=== PATIENT | male | born 1955 | race Caucasian/White ===

== ENCOUNTER → 2016-10-18 | Outpatient (CLI) | payer BC ==
[2016-10-18 16:33] LABS: HEMATOCRIT 38.2 % (42-52); MEAN CORPUSCULAR HEMOGLOBIN 29.5 pg (25-34); MEAN CORPUSCULAR HGB CONC 34.3 g/dl (32-36); MEAN PLATELET VOLUME 9.4 fL (7.4-10.4); PLATELET COUNT 366 K/uL (130-400); RED BLOOD COUNT 4.44 M/uL (4.7-6.1); WHITE BLOOD COUNT 8.53 K/uL (4.8-10.8)
[2016-10-18 17:00] LABS: ALT/SGPT 34 U/L (12-78); AST/SGOT 16 U/L (15-37); BLOOD UREA NITROGEN 13 mg/dl (7-18); BUN/CREATININE RATIO 16.3 (10-20); CALCIUM 8.4 mg/dl (8.5-10.1); CARBON DIOXIDE 28 mmol/L (21-32); CHLORIDE 107 mmol/L (98-107); CHOLESTEROL 131 mg/dl (0-200); CREATININE 0.81 mg/dl (0.60-1.40); GLUCOSE 95 mg/dl (70-99); POTASSIUM 3.6 mmol/L (3.5-5.1); SODIUM 143 mmol/L (136-145)
[2016-10-18 17:09] LABS: ALB/GLOB RATIO 1.2 (0.9-2); ALKALINE PHOSPHATASE 72 U/L (45-117); CHOLESTEROL/HDL RATIO 3.1; HDL CHOLESTEROL 42 mg/dl; LDL CHOLESTEROL CALCULATED 73 mg/dl; THYROID STIMULATING HORMONE 0.615 uIu/ml (0.300-4.500); TRIGLYCERIDES 82 mg/dl (0-150); VERY LOW DENSITY LIPOPROT CALC 16 mg/dl
[2016-10-18 17:27] LABS: RATIO 854.1 mcg/mg (0-30.0)
[2016-10-19 06:06] LABS: ESTIMATED AVERAGE GLUCOSE 232 mg/dl; HA1C FLAG Normal (Normal)
== END ==
LOC: C.LAB1850 14:48
PROVIDERS: ATTEND Internal Medicine Endocrinology, Diabetes & Metabolism
DX: E11.39 Type 2 diabetes mellitus with other diabetic ophthalmic complication (principal); E11.65 Type 2 diabetes mellitus with hyperglycemia; E78.5 Hyperlipidemia, unspecified; Z79.4 Long term (current) use of insulin; E11.43 Type 2 diabetes mellitus with diabetic autonomic (poly)neuropathy

== ENCOUNTER → 2017-01-02 | Outpatient (CLI) | payer BC ==
[~2017-01-02] VITALS: Ht 177.8 cm; Wt 106.5 kg
[2017-01-02 09:17] VITALS: BP 153/85; PULSE 80; Ht 177.8 cm; Wt 106.5 kg
== END | disposition home or self-care (01) ==
LOC: C.NEUR 08:43
PROVIDERS: ATTEND Internal Medicine Pulmonary Disease
DX: G47.33 Obstructive sleep apnea (adult) (pediatric) (principal); I25.10 Atherosclerotic heart disease of native coronary artery without angina pectoris; E11.49 Type 2 diabetes mellitus with other diabetic neurological complication; E11.65 Type 2 diabetes mellitus with hyperglycemia; E78.5 Hyperlipidemia, unspecified; I10 Essential (primary) hypertension; H91.90 Unspecified hearing loss, unspecified ear; K76.0 Fatty (change of) liver, not elsewhere classified; E66.9 Obesity, unspecified

== ENCOUNTER → 2018-01-28 | Outpatient (CLI) | payer BC | END | disposition home or self-care (01) | LOC: C.LAB1850 12:27 | PROVIDERS: ATTEND Internal Medicine Endocrinology, Diabetes & Metabolism | DX: E11.43 Type 2 diabetes mellitus with diabetic autonomic (poly)neuropathy (principal); Z79.4 Long term (current) use of insulin; R53.83 Other fatigue ==

== ENCOUNTER 2023-11-01 00:41 | Inpatient (IN) ==
[2023-11-01 01:27] LABS: Mean Corpuscular Hemoglobin 29.2 pg (25.0-34.0); Mean Corpuscular Hgb Conc 34.1 g/dL (32.0-36.0); Mean Corpuscular Volume 85.6 fL (80.0-100.0); Mean Platelet Volume 10.1 fL (9.4-12.4); Platelet Count 278 K/uL (130-400); RDW Coefficient of Variation 12.5 % (11.5-14.5); RDW Standard Deviation 39.3 fL (36.4-46.3); Red Blood Count 5.14 M/uL (4.70-6.10); White Blood Count 5.39 K/ul (4.8-10.8)
--- NOTE | 2023-11-01 01:28 | Emergency Department Note ---
History of Present Illness General Chief complaint: Hyperglycemia Stated complaint: CONFUSION,SLEEPY,DIABETIC Time Seen by Provider: 11/01/23 01:03 History of Present Illness This 68-year-old male with type 2 diabetes that is noncompliant presents the ER for fever, increased confusion and vomiting and diarrhea for the past day. states he stopped taking his diabetic medication as he did not currently have insurance. states she is not sure how long has been out of his diabetic medications. states he was not confused yesterday but today he has been. No well water. No recent travel. Patient and complaint of nausea, vomiting, diarrhea with fever and chills. Patient denies chest pain, dyspnea, cough, congestion, abdominal pain. Patient appears lethargic but is able to follow commands and answering questions appropriately. Home Medications Medication Instructions Recorded Confirmed Type aspirin 81 mg tablet,delayed 81 mg PO QAM 02/02/19 06/06/23 History release cetirizine 10 mg tablet 10 mg PO DAILY PRN ALLERGY RELIEF 02/02/19 06/06/23 History coenzyme Q10 100 mg capsule 100 mg PO QAM 02/02/19 06/06/23 History insulin syringe-needle U-100 0.5 #50 ea 08/21/19 06/06/23 Rx mL 31 gauge x 5/16" (BD Insulin Syringe Ultra-Fine) cholecalciferol (vitamin D3) 25 25 mcg PO DAILY 05/23/20 06/06/23 History mcg (1,000 unit) capsule multivitamin 1 tab PO DAILY 05/23/20 06/06/23 History FreeStyle Miki 2 Brady (flash #1 ea 01/13/21 06/06/23 Rx glucose scanning reader) celecoxib 200 mg capsule (Celebrex) 200 mg PO BID 01/13/21 06/06/23 History sildenafil 100 mg tablet See Rx Instructions .Route 07/20/21 06/06/23 Rx .COMPLEX #5 tabs blood sugar diagnostic #300 ea 11/16/21 06/06/23 Rx blood sugar diagnostic (OneTouch #300 ea 11/16/21 06/06/23 Rx Ultra Test strips) Omnipod Dash Pods (Gen 4) (insulin #10 ea 11/30/21 03/21/23 Rx pump cart,cont inf,BT) clopidogrel 75 mg tablet 75 mg PO DAILY #90 tabs 10/29/22 06/06/23 Rx V-GO 40 (sub-q insulin device, 40 #30 ea 11/07/22 06/06/23 Rx unit) insulin lispro 100 unit/mL 20 unit (0.2 mL) subcut DAILY #30 01/02/23 06/06/23 Rx subcutaneous pen (Humalog KwikPen mL (U-100) Insulin) clindamycin HCl 150 mg capsule 150 mg PO TID 03/21/23 06/06/23 History amlodipine 10 mg tablet 10 mg PO DAILY #30 tabs 04/02/23 06/06/23 Rx dulaglutide 3 mg/0.5 mL 3 mg (0.5 mL) subcut Q7D diabetes 04/15/23 06/06/23 Rx subcutaneous pen injector #2 mL metformin 1,000 mg tablet 1,000 mg PO BID 90 days #180 tabs 04/23/23 06/06/23 Rx metoprolol succinate 25 mg See Rx Instructions .Route 04/25/23 06/06/23 Rx tablet,extended release 24 hr .COMPLEX #45 tabs Humalog U-100 Insulin 100 unit/mL See Rx Instructions subcut DAILY 04/26/23 06/06/23 Rx subcutaneous solution (insulin #70 mL lispro) blood-glucose sensor (FreeStyle #2 ea 08/02/23 Rx Miki 3 Sensor device) atorvastatin 80 mg tablet 80 mg PO DAILY #90 tabs 08/21/23 Rx telmisartan 80 mg tablet 80 mg PO DAILY #90 tabs 08/21/23 Rx pregabalin 150 mg capsule 150 mg PO TID #270 caps 09/25/23 Rx Allergies Allergy/AdvReac Type Severity Reaction Status Date / Time ampicillin Allergy Intermediate Hives Verified 05/27/23 09:03 Past Med/Surg History Medical History Osteoarthritis GERD (gastroesophageal reflux disease) Macular degeneration RECEIVING EYE INJECTIONS Peripheral neuropathy Hx of migraines Rupture of right patellar tendon History of alcohol abuse History of gastric ulcer Vitamin D deficiency Obstructive sleep apnea of adult NO DEVICE Hypertension Hearing difficulty Erectile dysfunction Elevated PSA Dyslipidemia Diabetes mellitus with neurological manifestations, uncontrolled Diabetes mellitus with diabetic autonomic neuropathy, with long-term current use of insulin Coronary artery disease Chronic pain syndrome BMI 33.0-33.9,adult Surgical History History of colonoscopy History of tooth extraction History of tonsillectomy History of cataract surgery RT History of heart artery stent (~2009) History of lung surgery S/P PNEUMONIA (DRAINED EMPYEMA) Family History Sister Alcohol abuse Cancer Unknown Cancer Diabetes Cardiac disorder Hypertension Mother Diabetes Hypertension Father Cardiac disorder valvular disease COPD (chronic obstructive pulmonary disease) Lung cancer Brother Tremor Denies family history of Ovarian cancer Prostate cancer Myocardial infarction Breast cancer Colorectal cancer Social History Smoking Status: Never smoker Second Hand Exposure: No; Do You Dip or Chew Tobacco: No; Hx Alcohol Use: Yes Alcohol type: hard liquor Hx Substance Use: No Preferred Language: [place]dean Communication Ability: Effective Visual Impairment: No Limitations Hearing Ability: Normal Mail List Librarian Required: No Beliefs That Will Affect Care: None marital status: Current Living Situation: Spouse current occupational status: employed Feels Safe at Home: Yes Diet: regular Diet Comment: regular caffeine: Yes during the past year weight has: remained stable Dental Care, Regularly: Yes Physical Activity Frequency: Does not Exercise Seatbelt Use: always Sunscreen Use: Yes Assistive Devices: Brace/Splint/Immobilizer and Glasses Review of Systems A total of 10 systems reviewed and were otherwise negative Physical Exam Vital Signs Vital Signs - 24 hr 11/01/23 00:47 11/01/23 01:02 11/01/23 01:30 Temperature 38.0 C H Temperature Source Temporal Artery Scan Pulse Rate 141 H 137 H Pulse Rate [Apical] 133 H Pulse Rhythm Regular Pulse Strength Normal Respiratory Rate 18 20 Respiratory Effort / Characteristics Non-Labored Spontaneous Respiratory Depth Normal Respiratory Pattern Regular Blood Pressure 154/85 H Blood Pressure [Right Arm] 127/85 Blood Pressure Mean 108 Blood Pressure Mean [Right Arm] 99 Blood Pressure Position Sitting Pulse Oximetry 99 91 Oxygen Delivery Method Room Air Room Air Sepsis Recent Fever Within 48 Hours Yes Sepsis New/Unexplained Change in Mental Status Yes Sepsis Action Taken by Nursing No Action Required 11/01/23 01:30 11/01/23 02:39 Temperature 37.7 C H Temperature Source Oral Pulse Rate Pulse Rate [Apical] Pulse Rhythm Pulse Strength Respiratory Rate Respiratory Effort / Characteristics Respiratory Depth Respiratory Pattern Blood Pressure Blood Pressure [Right Arm] Blood Pressure Mean Blood Pressure Mean [Right Arm] Blood Pressure Position Pulse Oximetry 91 Oxygen Delivery Method Room Air Sepsis Recent Fever Within 48 Hours Sepsis New/Unexplained Change in Mental Status Sepsis Action Taken by Nursing VITALS: Vitals are noted on the nurse's note and reviewed by myself. Vital signs febrile GENERAL: White male with concerns for DKA, in no acute distress, nondiaphoretic, well-developed well-nourished. SKIN: Capillary reflex less than 2 seconds. HEENT: Normocephalic. PERRLA. EOMI. Nares patent. Mucous membranes dry. Neck is supple without nuchal rigidity. HEART: Regular rate and rhythm LUNGS: Clear to auscultation bilaterally without wheezes, rales or rhonchi. No retractions or accessory muscle use. ABDOMEN: Positive bowel sounds x 4. Normal tympanic percussion. Soft, nontender, without masses or organomegaly. Brown sign negative. No guarding or rebound tenderness. no CVA tenderness MUSCULOSKELETAL: No gross musculoskeletal defects. NEURO: Patient was alert and oriented to person place and time. No focal neurological deficits. Course Administered Medications Insulin Human Regular 250 (units/ Sodium Chloride) 250 mls @ 6.4 mls/hr IV .Q24H [facility]; Protocol Stop: 12/01/23 02:14 Last Titration: 11/01/23 04:16 Dose: 6.4 units/hr, 6.4 mls/hr Documented By: CHRISTIANE Co-signed By: DINA Admin: 11/01/23 03:01 Dose: 8.1 units/hr, 8.1 mls/hr Documented By: Co-signed By: AJCKY Discontinued Medications Sodium Chloride (Nss) 1,000 mls @ 999 mls/hr IV .Q1H1M [facility] Stop: 11/01/23 03:15 Last Infusion: 11/01/23 02:44 Dose: Infused Documented By: Admin: 11/01/23 01:54 Dose: 999 mls/hr Documented By: Infusion: 11/01/23 01:54 Dose: Infused Documented By: Admin: 11/01/23 01:48 Dose: 999 mls/hr Documented By: JACKY Cefepime HCl (Maxipime) 2,000 mg in 20 mls @ 5 mls/min IV NOW STA; Protocol Stop: 11/01/23 02:10 Last Admin: 11/01/23 02:19 Dose: 5 mls/min Documented By: JACKY Magnesium Sulfate/Dextrose (Magnesium Sulfate / D5w) 1 gm in 100 mls @ 100 mls/hr IV Q1H DANO Stop: 11/01/23 04:10 Last Admin: 11/01/23 03:44 Dose: 100 mls/hr Documented By: Infusion: 11/01/23 03:20 Dose: Infused Documented By: Admin: 11/01/23 02:20 Dose: 100 mls/hr Documented By: JACKY Acetaminophen (Ofirmev) 1,000 mg in 100 mls @ 400 mls/hr IV NOW STA Stop: 11/01/23 02:52 Last Infusion: 11/01/23 03:45 Dose: Infused Documented By: Admin: 11/01/23 03:01 Dose: 400 mls/hr Documented By: CHRISTIANE Insulin Human Regular (Novolin-R Bolus From Bag) 8.1 units IV 0245 ONE Stop: 11/01/23 02:46 Last Admin: 11/01/23 03:02 Dose: 8.1 units Documented By: Co-signed By: JACKY Ioversol (Optiray 320 125ml) 117 ml IV ONCE ONE Stop: 11/01/23 02:46 Last Admin: 11/01/23 02:45 Dose: 117 ml Documented By: ROLLY Miscellaneous (Stat Iv Infusion Titration Per Protocol) 1 each N/A NOW STA Stop: 11/01/23 02:11 Last Admin: 11/01/23 03:13 Dose: 1 each Documented By: CHRISTIANE Medical Decision Making Medical Records Attestation: I reviewed the patient's medical records. Home Medications Current Medication List: was personally reviewed by me Laboratory Data Attestation: I reviewed the patient's lab results. 11/01/23 01:09 11/01/23 03:08 Lab Results 11/01/23 11/01/23 11/01/23 Range/Units 00:54 01:09 01:37 WBC 5.39 (4.8-10.8) K/ul RBC 5.14 (4.70-6.10) M/uL Hgb 15.0 (14.0-18.0) g/dl Hct 44.0 (42.0-52.0) % MCV 85.6 (80.0-100.0) fL MCH 29.2 (25.0-34.0) pg MCHC 34.1 (32.0-36.0) g/dL RDW Std Deviation 39.3 (36.4-46.3) fL RDW Coeff of Sonu 12.5 (11.5-14.5) % Plt Count 278 (130-400) K/uL MPV 10.1 (9.4-12.4) fL Immature Gran % (Auto) 0.4 % Neut % (Auto) 90.9 % Lymph % (Auto) 2.0 % Geary % (Auto) 5.4 % Eos % (Auto) 0.9 % Baso % (Auto) 0.4 % Neut # (Auto) 4.90 (1.40-6.50) K/uL Lymph # (Auto) 0.11 L (1.20-3.40) K/uL Geary # (Auto) 0.29 (0.11-0.59) K/uL Eos # (Auto) 0.05 (0.00-0.50) K/uL Baso # (Auto) 0.02 (0.00-0.20) K/uL Immature Gran # (Auto) 0.02 (0.01-0.20) K/uL PT 11.6 (9.0-12.0) Seconds INR 1.1 (0.9-1.1) APTT 28 (21-31) Seconds PTT Ratio 1.0 VBG pH (7.36-7.41) Sodium 129 L (136-145) mmol/L Potassium 4.4 (3.5-5.1) mmol/L Chloride 100 (98-107) mmol/L Carbon Dioxide 17 L (21-32) mmol/L Anion Gap 12 H (3-11) BUN 28 H (6-23) mg/dl Creatinine 1.00 (0.6-1.4) mg/dl Est Cr Clr Drug Dosing 74.0 ml/min Est GFR ( Amer) 89.9 ml/min Est GFR (Non-Af Amer) 77.5 ml/min BUN/Creatinine Ratio 28.0 H (10-20) Glucose 524 H* (70-99(Fasting)) mg/dl POC Glucose 458 H* (70-99) mg/dl Lactate (0.4-2.0) mmol/L Calcium 9.0 (8.6-10.3) mg/dl Phosphorus (2.5-4.9) mg/dl Magnesium 1.5 L (1.7-2.4) mg/dl Total Bilirubin 0.6 (0.2-1.0) mg/dl Direct Bilirubin 0.1 (0-0.2) mg/dl AST 14 (13-39) U/L ALT 18 (7-52) U/L Alkaline Phosphatase 79 (34-104) U/L Troponin I High Sens 25.8 H (0-20) pg/ml Total Protein 7.0 (6.0-8.3) gm/dl Albumin 4.3 (3.4-5.0) gm/dl Procalcitonin 2.98 H (0-0.5) ng/ml Urine Color Yellow Urine Appearance Clear (Clear) Urine pH 5.0 (4.5-7.5) Ur Specific Union 1.036 H (1.000-1.030) Urine Protein Trace H (Negative) Urine Glucose (UA) 3+ H (Negative) Urine Ketones 2+ H (Negative) Urine Blood Negative (Negative) Urine Nitrite Negative (Negative) Urine Bilirubin Negative (Negative) Urine Urobilinogen Negative (Negative) Ur Leukocyte Esterase Negative (Negative) Urine WBC (Auto) 0-5 (0-5) /hpf Urine RBC (Auto) 0-2 (0-2) /hpf U Hyaline Cast (Auto) 0-2 (0-2) /lpf U Epithel Cells (Auto) 0-2 (0-2) /hpf Urine Bacteria (Auto) None Seen (None Seen) Adenovirus (PCR) (NotDetected) B. pertussis DNA (PCR) (NotDetected) B.parapertussis DNA PCR (NotDetected) C. pneumoniae DNA (PCR) (NotDetected) Coronavirus OC43 (PCR) (NotDetected) Coronavirus HKU1 (PCR) (NotDetected) Coronavirus 229E (PCR) (NotDetected) SARS-CoV-2 (PCR) (NotDetected) Coronavirus NL63 (PCR) (NotDetected) Human Metapneumovir PCR (NotDetected) Influenza Type A (PCR) (NotDetected) Influenza Type B (PCR) (NotDetected) M. pneumoniae (PCR) (NotDetected) Parainfluenza 1 (PCR) (NotDetected) Parainfluenza 2 (PCR) (NotDetected) Parainfluenza 3 (PCR) (NotDetected) Parainfluenza 4 (PCR) (NotDetected) RSV (PCR) (NotDetected) Entero/Rhino (PCR) (NotDetected) 11/01/23 11/01/23 11/01/23 Range/Units 01:52 03:08 04:07 WBC (4.8-10.8) K/ul RBC (4.70-6.10) M/uL Hgb (14.0-18.0) g/dl Hct (42.0-52.0) % MCV (80.0-100.0) fL MCH (25.0-34.0) pg MCHC (32.0-36.0) g/dL RDW Std Deviation (36.4-46.3) fL RDW Coeff of Sonu (11.5-14.5) % Plt Count (130-400) K/uL MPV (9.4-12.4) fL Immature Gran % (Auto) % Neut % (Auto) % Lymph % (Auto) % Geary % (Auto) % Eos % (Auto) % Baso % (Auto) % Neut # (Auto) (1.40-6.50) K/uL Lymph # (Auto) (1.20-3.40) K/uL Geary # (Auto) (0.11-0.59) K/uL Eos # (Auto) (0.00-0.50) K/uL Baso # (Auto) (0.00-0.20) K/uL Immature Gran # (Auto) (0.01-0.20) K/uL PT (9.0-12.0) Seconds INR (0.9-1.1) APTT (21-31) Seconds PTT Ratio VBG pH 7.32 L (7.36-7.41) Sodium 130 L (136-145) mmol/L Potassium 4.7 (3.5-5.1) mmol/L Chloride 104 (98-107) mmol/L Carbon Dioxide 17 L (21-32) mmol/L Anion Gap 9 (3-11) BUN 27 H (6-23) mg/dl Creatinine 1.08 (0.6-1.4) mg/dl Est Cr Clr Drug Dosing 68.5 ml/min Est GFR ( Amer) 81.9 ml/min Est GFR (Non-Af Amer) 70.6 ml/min BUN/Creatinine Ratio 25.0 H (10-20) Glucose 447 H* (70-99(Fasting)) mg/dl POC Glucose 343 H* (70-99) mg/dl Lactate 1.7 (0.4-2.0) mmol/L Calcium 7.4 L (8.6-10.3) mg/dl Phosphorus 2.0 L (2.5-4.9) mg/dl Magnesium 1.6 L (1.7-2.4) mg/dl Total Bilirubin (0.2-1.0) mg/dl Direct Bilirubin (0-0.2) mg/dl AST (13-39) U/L ALT (7-52) U/L Alkaline Phosphatase (34-104) U/L Troponin I High Sens 30.6 H (0-20) pg/ml Total Protein (6.0-8.3) gm/dl Albumin (3.4-5.0) gm/dl Procalcitonin (0-0.5) ng/ml Urine Color Urine Appearance (Clear) Urine pH (4.5-7.5) Ur Specific Union (1.000-1.030) Urine Protein (Negative) Urine Glucose (UA) (Negative) Urine Ketones (Negative) Urine Blood (Negative) Urine Nitrite (Negative) Urine Bilirubin (Negative) Urine Urobilinogen (Negative) Ur Leukocyte Esterase (Negative) Urine WBC (Auto) (0-5) /hpf Urine RBC (Auto) (0-2) /hpf U Hyaline Cast (Auto) (0-2) /lpf U Epithel Cells (Auto) (0-2) /hpf Urine Bacteria (Auto) (None Seen) Adenovirus (PCR) Not Detected (NotDetected) B. pertussis DNA (PCR) Not Detected (NotDetected) B.parapertussis DNA PCR Not Detected (NotDetected) C. pneumoniae DNA (PCR) Not Detected (NotDetected) Coronavirus OC43 (PCR) Not Detected (NotDetected) Coronavirus HKU1 (PCR) Not Detected (NotDetected) Coronavirus 229E (PCR) Not Detected (NotDetected) SARS-CoV-2 (PCR) Not Detected (NotDetected) Coronavirus NL63 (PCR) Not Detected (NotDetected) Human Metapneumovir PCR Not Detected (NotDetected) Influenza Type A (PCR) Not Detected (NotDetected) Influenza Type B (PCR) Not Detected (NotDetected) M. pneumoniae (PCR) Not Detected (NotDetected) Parainfluenza 1 (PCR) Not Detected (NotDetected) Parainfluenza 2 (PCR) Not Detected (NotDetected) Parainfluenza 3 (PCR) Not Detected (NotDetected) Parainfluenza 4 (PCR) Not Detected (NotDetected) RSV (PCR) Not Detected (NotDetected) Entero/Rhino (PCR) Not Detected (NotDetected) Imaging Data Attestation: I personally reviewed and interpreted this imaging study as follows: Radiologist's Impression: Abdomen/Pelvis CT 11/01/23 02:10 Exam(s): CT ABDOMEN + PELVIS With Contrast IV Amt: 118 cc opti 320 EXAM: CT Abdomen and Pelvis With Intravenous Contrast CLINICAL HISTORY: sepsis. TECHNIQUE: Axial computed tomography images of the abdomen and pelvis with intravenous contrast. CTDI is 67 mGy and DLP is 2445 mGy-cm. Automated exposure control was utilized for the study. A dose lowering technique was utilized adhering to the principles of ALARA. CONTRAST: Patient received 118 cc opti 320 of IV contrast COMPARISON: No relevant prior studies available. FINDINGS: Lung bases: Unremarkable. No mass. No consolidation. ABDOMEN: Liver: Hepatic steatosis. Gallbladder and bile ducts: Unremarkable. No calcified stones. No ductal dilation. Pancreas: Unremarkable. No mass. No ductal dilation. Spleen: Unremarkable. No splenomegaly. Adrenals: Unremarkable. No mass. Kidneys and ureters: Unremarkable. No solid mass. No hydronephrosis. Stomach and bowel: The stomach is mildly distended with fluid and gas. No gastric mucosal thickening. Fluid distention of the small bowel throughout the abdomen and pelvis without dilation. Mild mucosal prominence of the jejunal loops is presumed normal variation. Mild stool burden in the colon. No diverticulitis. PELVIS: Appendix: A somewhat atrophic appearing appendix is noted medial to the cecum in the right lower quadrant. Bladder: Unremarkable. No mass. Reproductive: Unremarkable as visualized. ABDOMEN and PELVIS: Intraperitoneal space: Unremarkable. No free air. No significant fluid collection. Bones/joints: Grade 1 anterolisthesis of L5 on S1 secondary to bilateral L5 spondylolysis. No acute osseous traumatic injury. Chronic anterior wedging noted at T11 and T12 levels with slight accentuated kyphosis. Multilevel disc narrowing with vacuum phenomenon. No dislocation. Soft tissues: Unremarkable. Vasculature: Unremarkable. No abdominal aortic aneurysm. Lymph nodes: Unremarkable. No enlarged lymph nodes. IMPRESSION: 1. Fluid distention of the small bowel throughout the abdomen and pelvis without dilation. Mild mucosal prominence of the jejunal loops is presumed normal variation. Mild stool burden in the colon. No diverticulitis. No free intraperitoneal fluid or pneumoperitoneum. Incidental normal caliber appendix. 2. No other findings in the abdomen or pelvis to suggest the patient's reported sepsis. Electronically signed by: Jesus Stevens MD 11/01/23 04:07 AM Chest CTA 11/01/23 02:10 Exam(s): CTA CHEST IV Amt: 117 cc opti 320 EXAM: CT Chest With Intravenous Contrast CLINICAL HISTORY: Evaluate for PE. TECHNIQUE: Axial computed tomographic images of the chest with intravenous contrast. CTDI is 67 mGy and DLP is 2445 mGy-cm. Automated exposure control was utilized for the study. A dose lowering technique was utilized adhering to the principles of ALARA. COMPARISON: No relevant prior studies available. FINDINGS: Pulmonary arteries: Accounting for limitations with respiratory artifact and suboptimal enhancement pattern, there is no definite evidence for pulmonary embolism. The majority of the subsegmental pulmonary artery segments are of nondiagnostic quality. Aorta: The thoracic aorta is normal in caliber with mild atherosclerotic calcification. No dissection. Lungs: Diminished lung volumes with subsegmental presumed atelectasis noted in the posterior lower lobes. No focal airspace consolidation. Pleural space: Unremarkable. No significant effusion. No pneumothorax. Heart: The cardiac chambers are borderline prominent. Prominent coronary artery calcification is greater than expected for the patient's age but is of uncertain clinical significance. Trace pericardial effusion. Bones/joints: No acute fracture. No dislocation. Soft tissues: Unremarkable. Lymph nodes: Nonspecific subcentimeter paraesophageal lymph nodes. IMPRESSION: 1. Accounting for limitations with respiratory artifact and suboptimal enhancement pattern, there is no definite evidence for pulmonary embolism. The majority of the subsegmental pulmonary artery segments are of nondiagnostic quality. 2. Diminished lung volumes with subsegmental presumed atelectasis noted in the posterior lower lobes. No focal airspace consolidation. No pleural effusion or pneumothorax. 3. Cardiac chambers are upper normal limits. Prominent coronary artery calcification is greater than expected for the patient's age. Trace pericardial effusion. Electronically signed by: Jesus Stevens MD 11/01/23 03:58 AM MDM Narrative Prior records/ancillary studies reviewed and summarized above. Nursing notes reviewed. Additional history obtained from family The patient's history was concerning for fever, nausea, vomiting, diarrhea, hyperglycemia. Differential diagnosis: Etiologies such as DKA, metabolic, infection, hypo/hyperglycemia, electrolyte abnormalities, cardiac sources, intracerebral event, toxicologic, neurologic, as well as others were entertained. Physical examination: As above. ER treatment provided: IV Lock An order was placed for continuous cardiac monitoring. The monitor shows a rate of 60-1 50 with a sinus rhythm per my interpretation. IV fluids On reassessment the patient felt better. Diagnostics interpretation by me: ECG: Tachycardia EKG: Poor baseline, normal sinus, occasional PVC, no acute ST-T wave changes. Impression sinus tachycardia independently interpreted by myself The labs Independently Interpreted by myself revealed hyperglycemia without DKA, negative urine, negative BioFire Elevated procalcitonin, elevated troponin Imaging studies: Chest x-ray with no acute consolidation, pneumothorax or free air per my independent interpretation CTs as above Consultation: A consultation was placed with the hospitalist. The case was discussed and diagnostics were reviewed. The patient was evaluated in the ER for further treatment. Exam and history seem consistent with hyperglycemia with fever with poorly controlled diabetes. ABG showed normal pH. Patient was hydrated and started on insulin as above. Elevated procalcitonin with no obvious source. Imaging was negative. Patient was unable to give a stool sample. BioFire was negative. Urine is not infected. No pneumonia. Patient is agreeable treatment plan of admission. Medicine was consulted and patient will be admitted. by the evaluation outlined above emergent etiologies such as cardiac sources, intracerebral event, toxologic, neurologic, as well as others were deemed relatively unlikely. The pt informed about the findings as listed above. All questions were answered and pleased with the treatment. The chart was completed utilizing Loopback Speech voice recognition software. Grammatical errors, random word insertions, pronoun errors, and incomplete sentences are an occassional consequence of this system due to software limitations, ambient noise, and hardware issues. Any formal questions or concerns about the content, text, or information contained within the body of this dictation should be directly addressed to the physician account assistant for clarification. Impression & Plan Acute hyperglycemia, Poorly controlled diabetes mellitus, Sepsis, Type 2 myocardial infarction Discharge Plan Visit Data Chief Complaint: Hyperglycemia Stated Complaint: CONFUSION,SLEEPY,DIABETIC ED Provider: Amber Greenwood ED Midlevel Provider: Nikki Ac Discharge Problem: Acute hyperglycemia, Poorly controlled diabetes mellitus, Sepsis, Type 2 myocardial infarction Patient Disposition: Admitted As Inpatient Condition: Fair Forms Stand Alone Forms: [facility] Behavio Prescriptions Prescriptions: No Action (DME) insulin syringe-needle U-100 [BD Insulin Syringe Ultra-Fine] 0.5 mL 31 gauge x 5/16" syringe See Rx Instructions [id number] .MEDSUPPLY Qty: 50 1RF Rx Instructions: As directed clopidogrel 75 mg tablet 75 mg PO DAILY Qty: 90 3RF Patient Comments: TAKES QAM (DME) V-GO 40 Device See Rx Instructions .ROUTE .MEDSUPPLY Qty: 30 11RF Rx Instructions: use 1 pod daily insulin lispro [Humalog KwikPen Insulin] 100 unit/mL insulin pen 20 unit subcut DAILY Qty: 30 2RF amlodipine 10 mg tablet 10 mg PO DAILY Qty: 30 2RF Trulicity 3 mg/0.5 mL pen injector 3 mg SQ Q7D Qty: 2 3RF Patient Comments: TAKES ON SUNDAYS metformin 1,000 mg tablet 1,000 mg PO BID 90 Days Qty: 180 3RF metoprolol succinate 25 mg tablet extended release 24 hr See Rx Instructions .ROUTE .COMPLEX Qty: 45 3RF Dose Instruction: TAKE 1/2 TABLET BY MOUTH ONCE DAILY Rx Instructions: TAKE 1/2 TABLET BY MOUTH ONCE DAILY insulin lispro [Humalog U-100 Insulin] 100 unit/mL solution See Rx Instructions SQ DAILY Qty: 70 1RF Rx Instructions: 70 units daily in V-GO subcut daily; (DME) FreeStyle Miki 3 Sensor Device See Rx Instructions .Route Qty: 2 12RF Rx Instructions: Change sensor every 14 days telmisartan 80 mg tablet 80 mg PO DAILY Qty: 90 3RF Patient Comments: TAKES QAM atorvastatin 80 mg tablet 80 mg PO DAILY Qty: 90 3RF Patient Comments: TAKES QPM pregabalin 150 mg capsule 150 mg PO TID Qty: 270 0RF aspirin 81 mg tablet,delayed release (DR/EC) 81 mg PO QAM cetirizine 10 mg tablet 10 mg PO DAILY PRN (Reason: ALLERGY RELIEF) coenzyme Q10 100 mg capsule 100 mg PO QAM clindamycin HCl 150 mg capsule 150 mg PO TID sildenafil 100 mg tablet See Rx Instructions .ROUTE .COMPLEX Qty: 5 5RF Dose Instruction: TAKE ONE TABLET BY MOUTH EVERY DAY NEEDED FOR SEXUAL ACTIVITY Rx Instructions: TAKE ONE TABLET BY MOUTH EVERY DAY NEEDED FOR SEXUAL ACTIVITY, one hour prior on empty stomach (DME) OneTouch Ultra Blue Test Strip Strip See Rx Instructions .ROUTE .MEDSUPPLY Qty: 300 3RF Rx Instructions: test 3 times daily (DME) OneTouch Ultra Test Strip See Rx Instructions .Route Qty: 300 3RF Rx Instructions: Check 3x a day (DME) Omnipod Dash Pods (Gen 4) Cartridge See Rx Instructions .Route Qty: 10 11RF Rx Instructions: Change pod every 72 hours cholecalciferol (vitamin D3) 25 mcg (1,000 unit) capsule 25 mcg PO DAILY multivitamin Tablet 1 tab PO DAILY celecoxib [Celebrex] 200 mg capsule 200 mg PO BID (DME) FreeStyle Miki 2 Brady Misc See Rx Instructions .ROUTE .MEDSUPPLY Qty: 1 0RF Rx Instructions: Use with mikiswapnil delacruz Referrals Referrals: Jesus Vickers CRNP [Primary Care Provider] -
[2023-11-01] MEDS: SODIUM CHLORIDE 0.9% 1,000 ML IV SCH (01:48)
[2023-11-01 01:53] LABS: Appearance Urine Clear (Clear); Bacteria Urine Automated None Seen (None Seen); Bilirubin Urine Negative (Negative); Blood Urine Negative (Negative); Cast Urine Automated 0-2 /lpf (0-2); Color Urine Yellow; Epithelial Cell Urine Auto 0-2 /hpf (0-2); Glucose Urine UA 3+ (Negative); Ketones Urine 2+ (Negative); Leukocyte Esterase Urine Negative (Negative); Nitrite Urine Negative (Negative); Protein Urine Trace (Negative); RBC Urine Automated 0-2 /hpf (0-2); Specific Gravity Urine 1.036 (1.000-1.030); Urobilinogen Urine Negative (Negative); WBC Urine Automated 0-5 /hpf (0-5)
[2023-11-01 02:00] LABS: INR 1.1 (0.9-1.1); Partial Thromboplastin Time 28 Seconds (21-31); Prothrombin Time 11.6 Seconds (9.0-12.0)
[2023-11-01 02:08] LABS: Albumin Level 4.3 gm/dl (3.4-5.0); Bilirubin Direct 0.1 mg/dl (0-0.2); Bilirubin,Total 0.6 mg/dl (0.2-1.0); Est GFR (African American) 89.9 ml/min; Est GFR (Non-African American) 77.5 ml/min; Magnesium 1.5 mg/dl (1.7-2.4); Potassium 4.4 mmol/L (3.5-5.1); Troponin I High Sensitivity 25.8 pg/ml (0-20)
[2023-11-01] MEDS ORDERED: PHARMACY GLYCEMIC MGMT CONSULT PRN (02:10)
[2023-11-01 02:11] LABS: Basophils # (auto) 0.02 K/uL (0.00-0.20); Basophils % (auto) 0.4 %; Eosinophils # (auto) 0.05 K/uL (0.00-0.50); Eosinophils % (auto) 0.9 %; Immature Granulocytes # (auto) 0.02 K/uL (0.01-0.20); Immature Granulocytes % (auto) 0.4 %; Lymphocytes # (auto) 0.11 K/uL (1.20-3.40); Monocytes # (auto) 0.29 K/uL (0.11-0.59); Monocytes % (auto) 5.4 %; Neutrophils % (auto) 90.9 %
[2023-11-01] MEDS: CEFEPIME 2,000 MG/20 ML VIAL IV STA (02:19)
[2023-11-01] MEDS: MAGNESIUM SULFATE / D5W 1 GM/100 ML BAG IV SCH ×2 (02:20→08:13)
[2023-11-01] MEDS: OPTIRAY 320 125ml IV ONE (02:45)
[2023-11-01 02:58] LABS: Adenovirus PCR Not Detected (NotDetected); Bordetella parapertussis PCR Not Detected (NotDetected); Bordetella pertussis PCR Not Detected (NotDetected); Chlamydia pneumoniae PCR Not Detected (NotDetected); Coronavirus 229E PCR Not Detected (NotDetected); Coronavirus CoV-2 (COVID19)PCR Not Detected (NotDetected); Coronavirus HKU1 PCR Not Detected (NotDetected); Coronavirus NL63 PCR Not Detected (NotDetected); Coronavirus OC43PCR Not Detected (NotDetected); Human Metapneumovirus PCR Not Detected (NotDetected); Influenza A PCR Not Detected (NotDetected); Influenza B PCR Not Detected (NotDetected); Mycoplasma pneumoniae PCR Not Detected (NotDetected); Parainfluenza Virus 1 PCR Not Detected (NotDetected); Parainfluenza Virus 2 PCR Not Detected (NotDetected); Parainfluenza Virus 3 PCR Not Detected (NotDetected); Parainfluenza Virus 4 PCR Not Detected (NotDetected); Respiratory Syncytial VirusPCR Not Detected (NotDetected); Rhinovirus/Enterovirus PCR Not Detected (NotDetected)
[2023-11-01] MEDS: ACETAMINOPHEN 1,000 MG/100 ML VIAL IV STA (03:01)
[2023-11-01] MEDS: INSULIN REGULAR 250 UNITS in SODIUM CHLORIDE 0.9% 247.5 ML IV SCH (03:01)
[2023-11-01] MEDS: NovoLIN-R BOLUS FROM BAG IV ONE (03:02)
[2023-11-01] MEDS: STAT IV Infusion **Titration per Protocol STA (03:13)
--- NOTE | 2023-11-01 03:59 | CT Scan Report ---
Exam(s): CTA CHEST IV Amt: 117 cc opti 320 EXAM: CT Chest With Intravenous Contrast CLINICAL HISTORY: Evaluate for PE. TECHNIQUE: Axial computed tomographic images of the chest with intravenous contrast. CTDI is 67 mGy and DLP is 2445 mGy-cm. Automated exposure control was utilized for the study. A dose lowering technique was utilized adhering to the principles of ALARA. COMPARISON: No relevant prior studies available. FINDINGS: Pulmonary arteries: Accounting for limitations with respiratory artifact and suboptimal enhancement pattern, there is no definite evidence for pulmonary embolism. The majority of the subsegmental pulmonary artery segments are of nondiagnostic quality. Aorta: The thoracic aorta is normal in caliber with mild atherosclerotic calcification. No dissection. Lungs: Diminished lung volumes with subsegmental presumed atelectasis noted in the posterior lower lobes. No focal airspace consolidation. Pleural space: Unremarkable. No significant effusion. No pneumothorax. Heart: The cardiac chambers are borderline prominent. Prominent coronary artery calcification is greater than expected for the patient's age but is of uncertain clinical significance. Trace pericardial effusion. Bones/joints: No acute fracture. No dislocation. Soft tissues: Unremarkable. Lymph nodes: Nonspecific subcentimeter paraesophageal lymph nodes. IMPRESSION: 1. Accounting for limitations with respiratory artifact and suboptimal enhancement pattern, there is no definite evidence for pulmonary embolism. The majority of the subsegmental pulmonary artery segments are of nondiagnostic quality. 2. Diminished lung volumes with subsegmental presumed atelectasis noted in the posterior lower lobes. No focal airspace consolidation. No pleural effusion or pneumothorax. 3. Cardiac chambers are upper normal limits. Prominent coronary artery calcification is greater than expected for the patient's age. Trace pericardial effusion. Electronically signed by: Jesus Stevens MD 11/01/23 03:58 AM
[2023-11-01 04:04] LABS: Calcium 7.4 mg/dl (8.6-10.3); Creatinine Clr Calc Pharmacy 68.5 ml/min; Est GFR (African American) 81.9 ml/min; Est GFR (Non-African American) 70.6 ml/min; Magnesium 1.6 mg/dl (1.7-2.4); Potassium 4.7 mmol/L (3.5-5.1)
--- NOTE | 2023-11-01 04:08 | CT Scan Report ---
Exam(s): CT ABDOMEN + PELVIS With Contrast IV Amt: 118 cc opti 320 EXAM: CT Abdomen and Pelvis With Intravenous Contrast CLINICAL HISTORY: sepsis. TECHNIQUE: Axial computed tomography images of the abdomen and pelvis with intravenous contrast. CTDI is 67 mGy and DLP is 2445 mGy-cm. Automated exposure control was utilized for the study. A dose lowering technique was utilized adhering to the principles of ALARA. CONTRAST: Patient received 118 cc opti 320 of IV contrast COMPARISON: No relevant prior studies available. FINDINGS: Lung bases: Unremarkable. No mass. No consolidation. ABDOMEN: Liver: Hepatic steatosis. Gallbladder and bile ducts: Unremarkable. No calcified stones. No ductal dilation. Pancreas: Unremarkable. No mass. No ductal dilation. Spleen: Unremarkable. No splenomegaly. Adrenals: Unremarkable. No mass. Kidneys and ureters: Unremarkable. No solid mass. No hydronephrosis. Stomach and bowel: The stomach is mildly distended with fluid and gas. No gastric mucosal thickening. Fluid distention of the small bowel throughout the abdomen and pelvis without dilation. Mild mucosal prominence of the jejunal loops is presumed normal variation. Mild stool burden in the colon. No diverticulitis. PELVIS: Appendix: A somewhat atrophic appearing appendix is noted medial to the cecum in the right lower quadrant. Bladder: Unremarkable. No mass. Reproductive: Unremarkable as visualized. ABDOMEN and PELVIS: Intraperitoneal space: Unremarkable. No free air. No significant fluid collection. Bones/joints: Grade 1 anterolisthesis of L5 on S1 secondary to bilateral L5 spondylolysis. No acute osseous traumatic injury. Chronic anterior wedging noted at T11 and T12 levels with slight accentuated kyphosis. Multilevel disc narrowing with vacuum phenomenon. No dislocation. Soft tissues: Unremarkable. Vasculature: Unremarkable. No abdominal aortic aneurysm. Lymph nodes: Unremarkable. No enlarged lymph nodes. IMPRESSION: 1. Fluid distention of the small bowel throughout the abdomen and pelvis without dilation. Mild mucosal prominence of the jejunal loops is presumed normal variation. Mild stool burden in the colon. No diverticulitis. No free intraperitoneal fluid or pneumoperitoneum. Incidental normal caliber appendix. 2. No other findings in the abdomen or pelvis to suggest the patient's reported sepsis. Electronically signed by: Jesus Stevens MD 11/01/23 04:07 AM
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
[2023-11-01] MEDS ORDERED: GLUCOSE 10 TAB/TUBE PO PRN (06:28)
[2023-11-01] MEDS ORDERED: GLUCAGON FOR INJ 1 MG VIAL SQ PRN (06:28)
[2023-11-01] MEDS ORDERED: VANCOMYCIN HCL 1,000 MG in SODIUM CHLORIDE 0.9% 250 ML IV SCH (06:28)
[2023-11-01] MEDS ORDERED: VANCOMYCIN CONSULT ACTIVE PRN (06:28)
[2023-11-01] MEDS ORDERED: CARBOHYDRATES FOR HYPOGLYCEMIA PO PRN (06:28)
[2023-11-01] MEDS ORDERED: SODIUM PHOSPHATE 3 MMOL/1 ML INFUSION IV STA (06:28)
[2023-11-01] MEDS ORDERED: DEXTROSE 50% 50 ML SYRINGE IV PRN (06:28)
[2023-11-01] MEDS ORDERED: GLUCOSE 40% GEL 15 GM TUBE PO PRN (06:28)
[2023-11-01] MEDS ORDERED: ONDANSETRON INJ 2 MG/ML 2 ML VIAL IV PRN (06:28)
[2023-11-01 06:49] LABS: Calcium 8.2 mg/dl (8.6-10.3); Magnesium 2.2 mg/dl (1.7-2.4); Potassium 3.8 mmol/L (3.5-5.1)
--- NOTE | 2023-11-01 06:52 | XRay Report ---
XR chest 1V portable CLINICAL HISTORY: Sepsis . COMPARISON STUDY: Chest radiograph January 18, 2020. FINDINGS: Lungs are clear. There is no pneumothorax or pleural effusion. Cardiac size is normal. Medi astinal contours are normal. There is no evidence for pulmonary edema. IMPRESSION: No acute cardiopulmonary findings. ACT 112: Negative or not required by law. Electronically signed by: Sj Jones M.D. 11/01/2023 6:50 AM
[2023-11-01 07:11] LABS: BUN Creatinine Ratio 26.2 (10-20); Creatinine Clr Calc Pharmacy 71.9 ml/min; Est GFR (African American) 86.7 ml/min; Est GFR (Non-African American) 74.8 ml/min
[2023-11-01] MEDS: LACTATED RINGER'S 1,000 ML IV SCH (07:25)
[2023-11-01] MEDS: VANCOMYCIN HCL 1,750 MG in SODIUM CHLORIDE 0.9% 500 ML IV STA (07:25)
[2023-11-01 07:32] LABS: Troponin I High Sensitivity 29.7 pg/ml (0-20)
[2023-11-01] MEDS: SODIUM PHOSPHATE 15 MMOL in SODIUM CHLORIDE 0.9% 250 ML IV ONE (08:09)
[2023-11-01] MEDS: INSULIN ASPART PER UNIT CHARGE SC SCH (08:39)
[2023-11-01 09:16] LABS: iSTAT Arterial Blood Gas HCO3 17 meg/L (19-24); iSTAT Arterial Blood Gas pCO2 30 mmHg (35-46); iSTAT Arterial Blood Gas pH 7.36 (7.35-7.45); iSTAT Arterial Blood Gas pO2 46 mmHg (80-95); iSTAT Carbon Dioxide 17 mmol/L (24-31); iSTAT Hematocrit 44 % (42-52); iSTAT Potassium 4.3 mmol/L (3.3-5.0); iSTAT Sodium 130 mmol/L (135-144)
[2023-11-01] MEDS: CEFEPIME 2,000 MG in SYRINGE 0 ML IV SCH (09:59)
[2023-11-01] MEDS: CEFEPIME 2,000 MG/20 ML VIAL ONE (09:59)
[2023-11-01] MEDS: ASPIRIN 81 MG ECTAB PO SCH (10:00)
[2023-11-01] MEDS: ATORVASTATIN 40 MG TAB PO SCH (10:00)
[2023-11-01] MEDS: ACETAMINOPHEN 325 MG TAB PO PRN (10:09)
--- NOTE | 2023-11-01 10:15 | Pharmacy Report ---
Pharmacy PK ABX Note - Date of Service November 01, 2023 - Assessment and Plan Assessment 68 year old M admitted for hyperglycemia. Started on Vancomycin empirically for fever and Sepsis. Unknown source of infection. Pertinent microbiologic data includes: Blood cultures pending. WBC normal. Procalcitonin elevated. Day #1 of antimicrobial therapy. Plan Vancomycin * Loading dose: 1750 mg IV x 1 given this morning. * Maintenance dose: 1000 mg IV every 12 hours * Regimen is predicted to achieve target AUC/[place] of 400-600 mg/L.hr * Level is not ordered. Will order level if plan is to continue Vancomycin. Pharmacy will continue to follow and will adjust dose/frequency as necessary. Thank you. Pharmacy has transitioned to AUC monitoring for vancomycin. AUC/[place] is the preferred PK/PD target and is associated with decreased risk of nephrotoxicity compared to traditional trough targets.
--- NOTE | 2023-11-01 11:17 | Pharmacy Report ---
Pharmacy Glycemic Short Note 2 - Date of Service November 01, 2023 - Glycemic Short BSG Results (Last 24 hours): 11/01/23 11/01/23 11/01/23 00:54 01:09 03:08 Glucose 524 H* 447 H* POC Glucose 458 H* 11/01/23 11/01/23 11/01/23 04:07 04:57 06:02 Glucose POC Glucose 343 H* 350 H* 349 H* 11/01/23 11/01/23 11/01/23 06:12 07:20 09:10 Glucose 325 H* POC Glucose 206 H 177 H 11/01/23 10:14 Glucose POC Glucose 178 H OUTPATIENT ANTIDIABETIC REGIMEN: * Humalog insulin pump * Metformin 1 gm PO BID * Trulicity 3 mg SC weekly ASSESSMENT: * 68 y/o M admitted last night for hyperglycemia/mild DKA and Sepsis. He has history of Type 2 diabetes, supposed to be on Humalog insulin pump and other anti-diabetic meds but has not been taking these for the past month or so due to losing insurance coverage. * Patient was started on insulin drip last night. BSGs have been trending down this morning. * Transition to SC insulin started this afternoon. Patient was given a dose of Lantus 20 units based on stress of 3. * Additional Lantus ordered for HS on a scale based on BSG. * Will utilize Novolog parameters based on stress of 3 PLAN FOR INPATIENT GLYCEMIC CONTROL: * Hold outpatient diabetes medications * Basal insulin * Lantus 20 units SQ x1 today afternoon * Lantus 0/5/10 units scale SQ HS based on BSG (see EMR for details). * Bolus insulin * NovoLog per scale ACHS or Q6hrs while NPO. Added overnight checks at 00,04 * Goal Range: Low 110 mg/dL - High 140 mg/dL * Correction Factor: 20 mg/dL/unit * Nutritional / Prandial insulin per carb ratio of 1 unit per 7 grams CHO consumed
[2023-11-01 11:34] LABS: Calcium 7.7 mg/dl (8.6-10.3); Potassium 3.4 mmol/L (3.5-5.1)
[2023-11-01 11:40] LABS: BUN Creatinine Ratio 31.8 (10-20); Creatinine Clr Calc Pharmacy 87.1 ml/min; Est GFR (African American) 104.5 ml/min; Est GFR (Non-African American) 90.2 ml/min; Phosphorus 2.1 mg/dl (2.5-4.9)
[2023-11-01] MEDS: LANTUS PER UNIT CHARGE SC SCH ×2 (12:45→20:05)
--- NOTE | 2023-11-01 12:48 | Electrocardiogram Report ---
Test Reason : Blood Pressure : / mmHG Vent. Rate : 129 BPM Atrial Rate : 129 BPM P-R Int : 152 ms QRS Dur : 080 ms QT Int : 310 ms P-R-T Axes : 044 -06 064 degrees QTc Int : 454 ms Sinus tachycardia with occasional Premature ventricular complexes Inferior infarct , age undetermined Poor R wave progression, consider anterior MT vs. lead placement vs. LVH Abnormal ECG When compared with ECG of 18-JAN-2020 15:55, Premature ventricular complexes are now Present Vent. rate has increased BY 53 BPM Inferior infarct is now Present ST now depressed in Lateral leads Confirmed by Kevin Pérez ([id number]) on 11/01/2023 12:47:42 PM Referred By: REFERRED SELF Confirmed By:Kevin Pérez
--- NOTE | 2023-11-01 12:51 | Hospitalist Progress Note ---
Date of Service November 01, 2023 Assessment & Plan (1) Sepsis: Plan: - Patient with fever, tachycardia, elevated procalcitonin. Endorses nausea, vomiting, diarrhea x 1-2 weeks. - Continue sepsis of unknown origin workup. Metabolic encephalopathy, secondary to multifactorial medication noncompliance, multiple electrolyte abnormalities, metabolic acidosis, hyperglycemia, sepsis. -- Chest CTA, CT abdomen pelvis, CXR with no obvious explanation for patient's sepsis. -- Tick panel, monospot, respiratory BioFire, UA - all negative. - - Blood cultures pending. -- Stool PCR and C. difficile ordered, not yet collected. - Continue empiric vancomycin and cefepime. - Continue IV fluids LR at 125 mL/h x 3 L (2) Acute hyperglycemia: Plan: - Patient with elevated blood sugar at 524 on arrival, Type 2 diabetes with [facility]. Reports that he has not taken his diabetes medication for approximately 1 month due to insurance issues. -- Patient had been on metformin, dulaglutide, insulin lispro and Humalog. -- Last hemoglobin A1c on record from 01/17/2023 elevated 8.2 - He was given insulin here and started on a drip for management of hyperglycemi a. No anion gap. Does not appear to be DKA. - Continue insulin drip. Hyperglycemia improving. Most recent BS 143. - Continue IV hydration (3) Coronary artery disease: Plan: Patient with CAD status post mid LAD stent in January 2011. He denies chest pain. Does have mild elevation of troponin at 25.8--> 30.6. Patient denies chest pain. Continue aspirin 81 mg p.o. daily Continue atorvastatin 80 mg p.o. daily Hold metoprolol and telmisartan for now in setting of borderline low blood pressures Trend troponin Consider repeat echo (4) Hypertension: Plan: Blood pressure borderline low. Patient is on several agents for blood pressure control but has not been taking them for the last month or so. Hold antihypertensives IV fluid resuscitation Closely monitor blood pressure (5) Electrolyte abnormality: Plan: Patient with hypomagnesemia and hypophosphatemia Repleted Repeat labs Plan Discussed with case management about plan for medications upon discharge given patient's recent loss of insurance coverage. Continue sepsis of unknown origin workup. Ordered tick panel and Monospot. CODE STATUS: Full code Admission and Anticipated Discharge Date Admission Date: November 01, 2023 Subjective Patient seen and evaluated at bedside in ED. He reports feeling slightly better compared to when he first came in. He remains on the insulin drip at the time of my evaluation, with his most recent blood sugar being 146. He reports 1 episode of vomiting since presenting to the ED, denies any nausea at this time, and denies diarrhea at this time. We had a thorough discussion about possible sources of infection. On admission, his imaging, respiratory bio fire, and UA were negative. Additionally, his tick panel and Monospot were negative. Patient denies any recent travel, but does report that his traveled to [place] about 1 week ago. He does not report any known illnesses with her since being home. He denies any dental caries or abscesses, ear infections, or sinus infections. He reports he is taken Zyrtec for allergy relief intermittently this month. At home, he has 1 dog, 8 cats, and 12 chickens. Etiology behind infection remains unclear at this time. We will continue treating his infection empirically. Physical Exam Physical Exam: General: patient ill in appearance Skin: warm, dry, intact, small lesion with eschar on anterior abdomen, some old appearing lesions on feet, do not appear to be actively infected HEENT: NC/AT, PERRL, EOMI, anicteric sclera, conjunctiva without injection, external ear normal to inspection and nontender, nares patent, dry mucus membranes, dentition intact, no oropharyngeal lesions, neck supple, trachea midline, no LAD, no thyromegaly, no JVD Heart: +S1/S2, regular, tachycardic no m/r/g Lungs: equal air entry bilaterally, no rales/rhonchi/wheezes Abd: +BS, soft, NT/ND, no masses/organomegaly/ascites Ext: warm, 2+ pulses in UE/LE bilaterally, no clubbing/cyanosis or edema Neuro: nonfocal, patient AA&O x 4, speech intact, no facial droop, moving all extremities on command with equal strength 5/5 Results & Data Results & Data Vital Signs (Past 12 Hours) Vital Signs Temp Pulse Pulse Resp BP BP Pulse Ox 11/01/23 11:30 110/50 L 11/01/23 11:30 98 H 15 11/01/23 11:00 100/50 L 11/01/23 11:00 94 H 19 11/01/23 10:06 109 H 11 L 94 11/01/23 09:30 109/67 11/01/23 09:30 113 H 14 93 11/01/23 08:00 116 H 15 11/01/23 07:30 139/82 11/01/23 07:30 111 H 12 95 11/01/23 07:29 115 H 11/01/23 07:00 117/70 11/01/23 07:00 113 H 16 11/01/23 06:30 90 14 94 11/01/23 06:30 120/72 11/01/23 06:00 100 H 19 92 11/01/23 06:00 101/51 L 11/01/23 05:30 105 H 19 114/53 L 95 11/01/23 05:08 107 H 27 H 103/61 92 11/01/23 05:08 108 H 11/01/23 05:00 108 H 29 H 91 11/01/23 04:30 112 H 32 H 92 11/01/23 04:00 125 H 30 H 91 11/01/23 03:51 124 H 26 H 97/66 L 92 11/01/23 03:30 121 H 30 H 11/01/23 03:12 121 H 26 H 99/73 L 95 11/01/23 03:10 122 H 29 H 95 11/01/23 03:03 121 H 29 H 117/71 95 11/01/23 03:00 121 H 30 H 96 11/01/23 02:39 37.7 C H 11/01/23 01:30 91 11/01/23 01:30 133 H 20 127/85 91 11/01/23 01:02 137 H 11/01/23 00:47 38.0 C H 141 H 18 154/85 H 99 O2 Del Method 11/01/23 11:30 11/01/23 11:30 11/01/23 11:00 11/01/23 11:00 11/01/23 10:06 11/01/23 09:30 11/01/23 09:30 11/01/23 08:00 11/01/23 07:30 11/01/23 07:30 11/01/23 07:29 11/01/23 07:00 11/01/23 07:00 11/01/23 06:30 11/01/23 06:30 11/01/23 06:00 11/01/23 06:00 11/01/23 05:30 11/01/23 05:08 11/01/23 05:08 11/01/23 05:00 11/01/23 04:30 11/01/23 04:00 11/01/23 03:51 11/01/23 03:30 11/01/23 03:12 11/01/23 03:10 11/01/23 03:03 11/01/23 03:00 11/01/23 02:39 11/01/23 01:30 Room Air 11/01/23 01:30 Room Air 11/01/23 01:02 11/01/23 00:47 Room Air Laboratory Results Reviewed CBC Reviewed CMP Reviewed respiratory bio fire Reviewed UA Reviewed tick panel Reviewed Monospot Reviewed multiple blood sugar checks PG Care Time/CCT Total # of Minutes Spent Total Time Spent with Patient: Total time spent is greater than 50% in coordination of care (as documented) at patient's floor/unit and/or counseling patient: Coding Level of Care Code 31461 SUB INP/OBS CARE 3/50MIN Diagnoses Sepsis without acute organ dysfunction, due to unspecified organism A41.9 Sepsis acute organ dysfunction status: without acute organ dysfunction Sepsis type: sepsis due to unspecified organism Acute hyperglycemia R73.9 Coronary artery disease involving [place] coronary artery of [place] heart without angina pectoris I25.10 Associated angina: without angina Coronary Disease-Associated Artery/Lesion type: [place] artery [place] vs. transplanted heart: [place] heart Essential hypertension I10 Hypertension type: essential hypertension Electrolyte abnormality E87.8 (1) Sepsis Sepsis acute organ dysfunction status: without acute organ dysfunction Sepsis type: sepsis due to unspecified organism Qualified Code(s): A41.9 - Sepsis, unspecified organism (3) Coronary artery disease Associated angina: without angina Coronary Disease-Associated Artery/Lesion type: [place] artery [place] vs. transplanted heart: [place] heart Qualified Code(s): I25.10 - Atherosclerotic heart disease of [place] coronary artery without angina pectoris (4) Hypertension Hypertension type: essential hypertension Qualified Code(s): I10 - Essential (primary) hypertension
[2023-11-01 15:50] LABS: BUN Creatinine Ratio 29.2 (10-20); Calcium 7.8 mg/dl (8.6-10.3); Creatinine Clr Calc Pharmacy 95.1 ml/min; Est GFR (African American) 102.5 ml/min; Est GFR (Non-African American) 88.5 ml/min; Phosphorus 2.3 mg/dl (2.5-4.9); Potassium 3.6 mmol/L (3.5-5.1)
[2023-11-01] MEDS: VANCOMYCIN HCL 1,000 MG in SODIUM CHLORIDE 0.9% 250 ML IV SCH (18:07)
[2023-11-01 18:55] LABS: BUN Creatinine Ratio 25.5 (10-20); Calcium 7.6 mg/dl (8.6-10.3); Creatinine Clr Calc Pharmacy 86.3 ml/min; Est GFR (African American) 92.1 ml/min; Est GFR (Non-African American) 79.5 ml/min; Magnesium 1.9 mg/dl (1.7-2.4); Phosphorus 1.6 mg/dl (2.5-4.9); Potassium 3.6 mmol/L (3.5-5.1)
[2023-11-01 19:02] LABS: Troponin I High Sensitivity 26.4 pg/ml (0-20)
[2023-11-01 19:12] LABS: Adenovirus F 40/41 PCR Not Detected (NotDetected); Astrovirus PCR Not Detected (NotDetected); Campylobacter PCR Not Detected (NotDetected); Cryptosporidium PCR Not Detected (NotDetected); Cyclospora cayetanensis PCR Not Detected (NotDetected); Entamoeba histolytica PCR Not Detected (NotDetected); Enteroaggregative E.coli(EAEC) Not Detected (NotDetected); Enteropathogenic E.coli (EPEC) Not Detected (NotDetected); Enterotoxigenic E.coli (ETEC) Not Detected (NotDetected); Giardia lamblia PCR Not Detected (NotDetected); Plesiomonas shigelloides PCR Not Detected (NotDetected); Rotavirus A PCR Not Detected (NotDetected); Salmonella PCR Not Detected (NotDetected); Sapovirus PCR Not Detected (NotDetected); Shiga-like Toxin E.coli (STEC) Not Detected (NotDetected); Shigella/Enteroinvasive E.coli Not Detected (NotDetected); Vibrio cholerae PCR Not Detected (NotDetected); Vibrio species PCR Not Detected (NotDetected); Yersinia enterocolitica PCR Not Detected (NotDetected)
[2023-11-01 19:34] LABS: Cdiff Antigen Positive; Cdiff Toxin A+B Negative Cdiff Toxin (Negative); Cdiff Toxin B Gene (2yr or >) Positive Cdiff Gene (Neg)
[2023-11-01 19:37] LABS: Norovirus GI/GII PCR DETECTED (NotDetected)
[2023-11-01 23:51] LABS: Calcium 7.5 mg/dl (8.6-10.3); Creatinine Clr Calc Pharmacy 96.1 ml/min; Est GFR (Non-African American) 88.9 ml/min; Magnesium 1.9 mg/dl (1.7-2.4); Phosphorus 1.3 mg/dl (2.5-4.9); Potassium 3.4 mmol/L (3.5-5.1)
[2023-11-01] MEDS ORDERED: POTASSIUM PHOS 3 MMOL/1 ML INFUSION IV STA (23:54)
[2023-11-02] MEDS: INSULIN ASPART PER UNIT CHARGE SC SCH (00:32)
[2023-11-02] MEDS: POTASSIUM PHOSPHATE 30 MMOL in SODIUM CHLORIDE 0.9% 500 ML IV ONE (00:37)
[2023-11-02 08:24] LABS: Estimated Average Glucose 378 mg/dl; Hemoglobin A1C 14.8 % (4.5-5.6)
[2023-11-02] MEDS: LANTUS PER UNIT CHARGE SC SCH (08:29)
[2023-11-02 09:32] LABS: Basophils # (auto) 0.01 K/uL (0.00-0.20); Basophils % (auto) 0.3 %; Eosinophils # (auto) 0.06 K/uL (0.00-0.50); Eosinophils % (auto) 1.6 %; Hematocrit (blood only) 37.8 % (42.0-52.0); Hemoglobin 12.6 g/dl (14.0-18.0); Immature Granulocytes # (auto) 0.02 K/uL (0.01-0.20); Immature Granulocytes % (auto) 0.5 %; Lymphocytes # (auto) 0.42 K/uL (1.20-3.40); Lymphocytes % (auto) 10.9 %; Mean Corpuscular Hemoglobin 29.4 pg (25.0-34.0); Mean Corpuscular Hgb Conc 33.3 g/dL (32.0-36.0); Mean Corpuscular Volume 88.3 fL (80.0-100.0); Mean Platelet Volume 10.5 fL (9.4-12.4); Monocytes # (auto) 0.55 K/uL (0.11-0.59); Monocytes % (auto) 14.3 %; Neutrophils # (auto) 2.79 K/uL (1.40-6.50); Neutrophils % (auto) 72.4 %; Platelet Count 189 K/uL (130-400); RDW Coefficient of Variation 13.2 % (11.5-14.5); RDW Standard Deviation 42.8 fL (36.4-46.3); Red Blood Count 4.28 M/uL (4.70-6.10); White Blood Count 3.85 K/ul (4.8-10.8)
[2023-11-02 09:41] LABS: Calcium 7.4 mg/dl (8.6-10.3); Creatinine Clr Calc Pharmacy 112.8 ml/min; Est GFR (Non-African American) 94.9 ml/min; Potassium 4.2 mmol/L (3.5-5.1)
--- NOTE | 2023-11-02 10:42 | Hospitalist Progress Note ---
Date of Service November 02, 2023 Assessment & Plan (1) Sepsis: Plan: - Patient with fever, tachycardia, elevated procalcitonin. Endorses nausea, vomiting, diarrhea x 1-2 weeks. - Continue sepsis of unknown origin workup. Metabolic encephalopathy, secondary to multifactorial medication noncompliance, multiple electrolyte abnormalities, metabolic acidosis, hyperglycemia, sepsis. -- Chest CTA, CT abdomen pelvis, CXR with no obvious explanation for patient's sepsis. -- Tick panel, monospot, respiratory BioFire, UA - all negative. -- Preliminary blood cultures negative x 24 hours. - Positive norovirus on stool bio fire. C. difficile gene is positive, however C. difficile toxin is negative not active C. 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 -- Antibiotics were discontinued as we have identified a source of the infection. (2) Acute hyperglycemia: Plan: - Patient with elevated blood sugar at 524 on arrival to ED, Type 2 diabetes with [facility]. Reports that he has not taken his diabetes medication for approximately 1 month due to insurance issues. -- Patient had been on metformin, dulaglutide, insulin lispro and Humalog. -- HgbA1c elevated at 14.8% on 11/02/2023. - He was given insulin and started on a drip for management of hyperglycemia. No anion gap. Did not appear to be DKA on presentation. - Continue with pharmacy glycemic control management. Patient no longer requiring insulin drip. - Need to determine plan for diabetes management in the setting of insurance problems. If the patient is still hospitalized on Saturday, plan to meet with healthcare educator for potential options. (3) Electrolyte abnormality: Plan: - Patient with hypomagnesemia and hypophosphatemia on admission, repleted. - Phosphorus critically low and potassium low 10/31, repleted. WNL 11/02/23. (4) Hypertension: Plan: - Blood pressure borderline low on admission. Patient is on several agents for blood pressure control but has not been taking them for the last month or so. - Continue to hold antihypertensives given patient's recent normal blood pressures. - Closely monitor blood pressure. (5) Coronary artery disease: Plan: Patient with CAD status post mid LAD stent in January 2011. He denies chest pain. Does have mild elevation of troponin at 25.8--> 30.6. Patient denies chest pain. Continue aspirin 81 mg p.o. daily Continue atorvastatin 80 mg p.o. daily Hold metoprolol and telmisartan for now in setting of borderline low blood pressures Plan Discussed with case management about plan for medications upon discharge given patient's recent loss of insurance coverage. Updated at bedside and discussed plan. Reviewed blood pressures, continue holding antihypertensives. Discontinued antibiotics. CODE STATUS: Full code Admission and Anticipated Discharge Date Admission Date: November 01, 2023 Subjective Patient seen and evaluated at bedside. He reports generalized weakness, fatigue, diarrhea, and decreased appetite. He has no longer on the insulin drip; managed with pharmacy glycemic control, with his most recent blood sugar being 214. We discussed the results of his positive norovirus as the cause of his diarrhea and vomiting. Antibiotics have since been stopped. He reports 1 episode of diarrhea this morning. He did eat about half of his breakfast. Overall, he appears very fatigued. We further discussed globin A1c being 14.8 and the importance of a plan for diabetes management upon discharge. He states that his has been working to add him on to her insurance. If the patient is still here on Saturday, the diabetic counselor can meet with the patient and discussed potential options. I met with the patient's at bedside this afternoon to give her an update. She reports that he is being added to her insurance. They state that it is no problem if they have to pay for insulin out of pocket until the insurance coverage starts. h Physical Exam Physical Exam: General: No acute distress, nondiaphoretic, well-developed, well-nourished. Skin: The skin was without rashes, erythema, edema, or bruising. Small lesion with eschar on anterior abdomen, some old appearing lesions on feet, do not appear to be actively infected. Cardiac: Regular rate and rhythm without murmurs gallops or rubs. Pulm: Clear to auscultation bilaterally without wheezes, rales or rhonchi. No retractions or accessory muscle use. Abdominal: Positive bowel sounds x 4. Soft, nontender, without masses or organomegaly. No guarding or rebound tenderness. Neuro: A&O x3. No focal neurological deficits. Results & Data Results & Data Vital Signs (Past 12 Hours) Vital Signs Temp Pulse Pulse Resp BP BP Pulse Ox 11/02/23 07:39 37.0 C 80 18 145/76 H 94 11/02/23 07:34 102 H 11/02/23 03:28 36.7 C 87 17 143/67 H 94 11/01/23 23:25 36.7 C 97 H 17 113/58 L 93 O2 Del Method 11/02/23 07:39 Room Air 11/02/23 07:34 11/02/23 03:28 Room Air 11/01/23 23:25 Room Air Laboratory Results Reviewed CBC Reviewed chemistries Reviewed stool Biofire PG Care Time/CCT Total # of Minutes Spent Total Time Spent with Patient: Total time spent is greater than 50% in coordination of care (as documented) at patient's floor/unit and/or counseling patient: Coding Level of Care Code 81612 SUB INP/OBS CARE 3/50MIN Diagnoses Sepsis without acute organ dysfunction, due to unspecified organism A41.9 Sepsis acute organ dysfunction status: without acute organ dysfunction Sepsis type: sepsis due to unspecified organism Acute hyperglycemia R73.9 Electrolyte abnormality E87.8 Essential hypertension I10 Hypertension type: essential hypertension Coronary artery disease involving [place] coronary artery of [place] heart without angina pectoris I25.10 Associated angina: without angina Coronary Disease-Associated Artery/Lesion type: [place] artery [place] vs. transplanted heart: [place] heart (1) Sepsis Sepsis acute organ dysfunction status: without acute organ dysfunction Sepsis type: sepsis due to unspecified organism Qualified Code(s): A41.9 - Sepsis, unspecified organism (4) Hypertension Hypertension type: essential hypertension Qualified Code(s): I10 - Essential (primary) hypertension (5) Coronary artery disease Associated angina: without angina Coronary Disease-Associated Artery/Lesion type: [place] artery [place] vs. transplanted heart: [place] heart Qualified Code(s): I25.10 - Atherosclerotic heart disease of [place] coronary artery without angina pectoris
--- NOTE | 2023-11-02 14:24 | Pharmacy Report ---
Pharmacy Glycemic Short Note 2 - Date of Service November 02, 2023 - Glycemic Short BSG Results (Last 24 hours): 11/01/23 11/01/23 11/01/23 15:02 15:12 16:03 Glucose 143 H POC Glucose 116 H 156 H 11/01/23 11/01/23 11/01/23 18:21 19:52 22:44 Glucose 284 H 234 H POC Glucose 218 H 11/02/23 11/02/23 11/02/23 00:10 04:33 07:07 Glucose 226 H POC Glucose 195 H 152 H 11/02/23 11/02/23 07:12 11:11 Glucose POC Glucose 226 H 214 H OUTPATIENT ANTIDIABETIC REGIMEN: * Humalog insulin pump * Metformin 1 gm PO BID * Trulicity 3 mg SC weekly ASSESSMENT: 11/01 * Patient received 42 units in addition to insulin drip yesterday. Drip d/c yesterday afternoon. * Fasting BSG 226 mg/dL - received 30 units of basal insulin, will titrate to 35 units once daily * No change to CF/CR 10/31 * 68 y/o M admitted last night for hyperglycemia/mild DKA and Sepsis. He has history of Type 2 diabetes, supposed to be on Humalog insulin pump and other anti-diabetic meds but has not been taking these for the past month or so due to losing insurance coverage. * Patient was started on insulin drip last night. BSGs have been trending down this morning. * Transition to SC insulin started this afternoon. Patient was given a dose of Lantus 20 units based on stress of 3. * Additional Lantus ordered for HS on a scale based on BSG. * Will utilize Novolog parameters based on stress of 3 PLAN FOR INPATIENT GLYCEMIC CONTROL: * Hold outpatient diabetes medications * Basal insulin * Lantus 35 units once daily * Bolus insulin * NovoLog per scale ACHS or Q6hrs while NPO. Added overnight checks at 00,04 * Goal Range: Low 110 mg/dL - High 140 mg/dL * Correction Factor: 20 mg/dL/unit * Nutritional / Prandial insulin per carb ratio of 1 unit per 7 grams CHO consumed
[2023-11-03] MEDS: INSULIN ASPART PER UNIT CHARGE SC SCH (00:51)
[2023-11-03 07:13] LABS: Hematocrit (blood only) 38.1 % (42.0-52.0); Hemoglobin 12.7 g/dl (14.0-18.0); Mean Corpuscular Hemoglobin 28.9 pg (25.0-34.0); Mean Corpuscular Hgb Conc 33.3 g/dL (32.0-36.0); Mean Corpuscular Volume 86.8 fL (80.0-100.0); Mean Platelet Volume 10.1 fL (9.4-12.4); Platelet Count 224 K/uL (130-400); RDW Coefficient of Variation 12.8 % (11.5-14.5); RDW Standard Deviation 40.9 fL (36.4-46.3); Red Blood Count 4.39 M/uL (4.70-6.10); White Blood Count 4.49 K/ul (4.8-10.8)
[2023-11-03 07:30] LABS: BUN Creatinine Ratio 17.1 (10-20); Calcium 7.7 mg/dl (8.6-10.3); Creatinine Clr Calc Pharmacy 120.8 ml/min; Est GFR (African American) 113.2 ml/min; Est GFR (Non-African American) 97.7 ml/min; Magnesium 1.7 mg/dl (1.7-2.4); Phosphorus 1.6 mg/dl (2.5-4.9); Potassium 3.7 mmol/L (3.5-5.1)
[2023-11-03] MEDS: LANTUS PER UNIT CHARGE SC SCH (09:15)
--- NOTE | 2023-11-03 14:49 | Discharge Summary ---
Date of Service November 03, 2023 Admission HPI Per Admitting Provider Biju Capellan is a pleasant 68-year-old male with history of diabetes, hypertension, hyperlipidemia, CAD and GERD presenting with fever, confusion, nausea/vomiting/diarrhea and hyperglycemia. Patient unfortunately has lost his insurance coverage therefore he has been unable to obtain his medications for the last month. He reports he has been taking some of his 's insulin on occasion but overall has not been taking any of his prescribed medications. He reports 1 day of fever and chills as well as nonbloody/nonbilious vomiting and diarrhea. Was concerned because his blood sugar has been elevated over 500 for the last day. He reports polyuria as well. Denies chest pain, cough, shortness of breath. Denies dysuria or hematuria. Denies skin rashes or wounds. Denies abdominal pain. In the ER he is febrile, tachycardic, tachypneic Hyperglycemic. ER course: Tylenol Cefepime x 2 g Insulin drip Normal saline x 2 L Magnesium sulfate x 2 g Admission Exam Per Admitting Provider General: patient ill in appearance Skin: warm, dry, intact, small lesion with eschar on anterior abdomen, some old appearing lesions on feet, do not appear to be actively infected HEENT: NC/AT, PERRL, EOMI, anicteric sclera, conjunctiva without injection, external ear normal to inspection and nontender, nares patent, dry mucus membranes, dentition intact, no oropharyngeal lesions, neck supple, trachea midline, no LAD, no thyromegaly, no JVD Heart: +S1/S2, regular, tachycardic no m/r/g Lungs: equal air entry bilaterally, no rales/rhonchi/wheezes Abd: +BS, soft, NT/ND, no masses/organomegaly/ascites Ext: warm, 2+ pulses in UE/LE bilaterally, no clubbing/cyanosis or edema Neuro: nonfocal, patient AA&O x 4, speech intact, no facial droop, moving all extremities on command with equal strength 5/5 Principal Diagnosis Hyperglycemia Norovirus Discharge Exam General: No acute distress, nondiaphoretic, well-developed, well-nourished. Skin: The skin was without rashes, erythema, edema, or bruising. Small lesion with eschar on anterior abdomen, some old appearing lesions on feet, do not appear to be actively infected. Cardiac: Regular rate and rhythm without murmurs gallops or rubs. Pulm: Clear to auscultation bilaterally without wheezes, rales or rhonchi. No retractions or accessory muscle use. Abdominal: Positive bowel sounds x 4. Soft, nontender, without masses or organomegaly. No guarding or rebound tenderness. Neuro: A&O x3. No focal neurological deficits. 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 Endorsed nausea, vomiting, diarrhea x 1-2 weeks. - Metabolic encephalopathy, secondary to multifactorial medication noncompliance, multiple electrolyte abnormalities, metabolic acidosis, hyperglycemia, sepsis. -- Chest CTA, CT abdomen pelvis, CXR with no obvious explanation for patient's sepsis. -- Tick panel, monospot, respiratory BioFire, UA - all negative. -- Blood cultures negative x 48 hours. - Positive norovirus on stool bio fire. C. difficile gene is positive, however C. difficile toxin is negative not active C. 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 -- Antibiotics were discontinued given the source of infection was identified. (2) Acute hyperglycemia: - Patient with elevated blood sugar at 524 on arrival to ED, Type 2 diabetes with HHS. Reports that he has not taken his diabetes medication for approximately 1 month due to insurance issues. -- Patient had been on metformin, dulaglutide, insulin lispro and Humalog. -- HgbA1c elevated at 14.8% on 11/02/2023. - Did not appear to be DKA on presentation. - Managed with insulin drip initially, then Lantus insulin with sliding scale. - Discussed various diabetic regimen options with the patient for discharge given lack of insurance coverage currently. - Discharged on ReliOn 70-30 pen 25 units twice daily. - Follow-up with PCP and endocrinology. (3) Hypertension: - Blood pressure borderline low on admission. Patient is on several agents for blood pressure control but has not been taking them for the last month or so. - Held antihypertensives given patient's recent normal blood pressures while hospitalized. - Resumed telmisartan upon discharge for renal protection. Other antihypertensives held until follow-up with PCP. (4) Electrolyte abnormality: - Patient with hypomagnesemia and hypophosphatemia on admission, repleted. - Phosphorus critically low and potassium low 10/31, repleted. WNL 11/02/23. (5) Coronary artery disease: Patient with CAD status post mid LAD stent in January 2011. He denies chest pain. Does have mild elevation of troponin at 25.8--> 30.6. Patient denies chest pain. Continue aspirin 81 mg p.o. daily Continue atorvastatin 80 mg p.o. daily Plan CODE STATUS: Full code Total Time Total Time Spent Total Time Spent (In Minutes): Greater than 30 minutes spent completing this discharge process including direct patient care, medication reconciliation, documentation, review of labs and images, and coordination of care. Discharge Plan Discharge Items Patient Disposition: Home - Self-Care Reason For Visit: HYPERGLYCEMIA Discharge Diagnosis: Hyperglycemia Norovirus Condition on Discharge: Fair Activity: Resume your previous activity Non-emergency contact: Primary Care Provider and Specialist Call non-emergency contact if: you have any medication questions and your symptoms worsen Follow-up/Referrals: Jesus Vickers CRNP [Primary Care Provider] - 11/12/23 8:20 am Diet: Carb Consistent or DM2 Addtl Attending Provider Instructions: Mr. Capellan, You were admitted to the hospital due to hyperglycemia and sepsis. The nausea, vomiting, diarrhea you were experiencing was due to Norovirus. Norovirus is very contagious virus that can infect the stomach and intestines, causing diarrhea and vomiting. It is commonly caused from contaminated food. You can be infected with norovirus by coming into contact with a person who has the virus, or by touching contaminated surface or eating contaminated food. Norovirus is treated with conservative measures, including rest, fluids, and pain relievers, such as acetaminophen or ibuprofen to help with headaches or body aches. Your hyperglycemia was initially controlled with an insulin drip, then controlled with basal insulin (Lantus) with sliding scale insulin coverage. Your HgbA1c was found to be very elevated at 14.8%. HgbA1c is a blood test that shows what your average blood sugar was over the last 3 months. An A1c level of 14.8 means an estimated average daily glucose of 378. It is important to resume a diabetic regimen for blood sugar control. Upon discharge from the hospital: * Diabetic regimen: ReliOn 7030 pen 25 units twice daily. This prescription was sent to the [facility] on [address] [facility] [address] [facility]. -- Use this until you meet with your PCP or zinc plate grainer to discuss updated diabetic regimen when you have insurance coverage again. This was the most cost effective option for the time being. -- ReliOn 7030 pen is composed of 70% long-acting insulin and 30% short acting insulin. You will take this twice daily (morning and evening). In the morning, the short acting insulin will cover your breakfast and the long-acting insulin will cover your at lunch and afternoon. Then in the evening, the short acting insulin will cover your dinner and the long-acting insulin will cover you through the night. -- Closely monitor your blood sugar at home. * Resume telmisartan. This medicine helps protect your kidneys in the setting of diabetes. -- Hold your other blood pressure medications until you can have a blood pressure check with your PCP. Your blood pressures have been stable while in the hospital, even with holding your antihypertensive medications. * Continue with supportive measures, including staying hydrated with water and/or Gatorade, Powerade, Pedialyte, etc., rest. -- Your diarrhea could be improving over the next few days. If you are still experiencing diarrhea about 5 days after initial onset, you can then take Imodium as needed. * Follow-up with your PCP in 1 week. Their office will call you with an appointment date and time. * Follow-up with endocrinology. Their office will call you with an appointment date and time. Please return to the hospital if you experience any of the following: Fever of 100.4 F or higher, abdominal pain that gets worse, severe dizziness, severe vomiting or diarrhea, confusion, dizziness, lightheadedness, loss of con sciousness, shortness of breath, chest pain, weakness of an arm, leg, or 1 side of the face, or sudden trouble with speech or vision. It was a pleasure taking care of you while you were in the hospital, Ericka Heck PA-C Pending Studies at Discharge: No Stand-Alone Forms: My [facility], Smoking Cessation Medications and DC Order Prescriptions: New Novolin 70-30 FlexPen U-100 100 unit/mL (70-30) insulin pen 25 unit subcut BID Qty: 15 3RF Continued (DME) insulin syringe-needle U-100 [BD Insulin Syringe Ultra-Fine] 0.5 mL 31 gauge x 5/16" syringe See Rx Instructions [id number] .MEDSUPPLY Qty: 50 1RF Rx Instructions: As directed clopidogrel 75 mg tablet 75 mg PO DAILY Qty: 90 3RF Patient Comments: TAKES QAM Rx Instructions: Per she isn't sure what medications he takes as he had no insurance for months and didn't tell her. Pt isn't able to answer himself. 11/01/23 (DME) V-GO 40 Device See Rx Instructions .ROUTE .MEDSUPPLY Qty: 30 11RF Rx Instructions: use 1 pod daily metoprolol succinate 25 mg tablet extended release 24 hr See Rx Instructions .ROUTE .COMPLEX Qty: 45 3RF Dose Instruction: TAKE 1/2 TABLET BY MOUTH ONCE DAILY Rx Instructions: TAKE 1/2 TABLET BY MOUTH ONCE DAILY (DME) [place] Miki 3 Sensor Device See Rx Instructions .Route Qty: 2 12RF Rx Instructions: Change sensor every 14 days telmisartan 80 mg tablet 80 mg PO DAILY Qty: 90 3RF Patient Comments: TAKES QAM atorvastatin 80 mg tablet 80 mg PO DAILY Qty: 90 3RF Patient Comments: TAKES QPM pregabalin 150 mg capsule 150 mg PO TID Qty: 270 0RF Rx Instructions: Per she isn't sure what medications he takes as he had no insurance for months and didn't tell her. Pt isn't able to answer himself. 11/01/23 aspirin 81 mg tablet,delayed release (DR/EC) 81 mg PO UD Rx Instructions: Per "she isn't sure what medications he takes as he had no insurance for months and didn't tell her". Pt isn't able to answer himself. 11/01/23 cetirizine 10 mg tablet 10 mg PO DAILY PRN (Reason: ALLERGY RELIEF) coenzyme Q10 100 mg capsule 100 mg PO QAM Rx Instructions: Per she isn't sure what medications he takes as he had no insurance for months and didn't tell her. Pt isn't able to answer himself. 11/01/23 sildenafil 100 mg tablet See Rx Instructions .ROUTE .COMPLEX Qty: 5 5RF Dose Instruction: TAKE ONE TABLET BY MOUTH EVERY DAY NEEDED FOR SEXUAL ACTIVITY Rx Instructions: Per she isn't sure what medications he takes as he had no insurance for months and didn't tell her. Pt isn't able to answer himself. 11/01/23 TAKE ONE TABLET BY MOUTH EVERY DAY NEEDED FOR SEXUAL ACTIVITY, one hour prior on empty stomach (DME) blood sugar diagnostic Strip See Rx Instructions .ROUTE .MEDSUPPLY Qty: 300 3RF Rx Instructions: test 3 times daily (DME) OneTouch Ultra Test Strip See Rx Instructions .Route Qty: 300 3RF Rx Instructions: Check 3x a day (DME) Omnipod Dash Pods (Gen 4) Cartridge See Rx Instructions .Route Qty: 10 11RF Rx Instructions: Change pod every 72 hours cholecalciferol (vitamin D3) 25 mcg (1,000 unit) capsule 25 mcg PO DAILY Rx Instructions: Per she isn't sure what medications he takes as he had no insurance for months and didn't tell her. Pt isn't able to answer himself. 11/01/23 multivitamin Tablet 1 tab PO DAILY Rx Instructions: Per she isn't sure what medications he takes as he had no insurance for months and didn't tell her. Pt isn't able to answer himself. 11/01/23 celecoxib [Celebrex] 200 mg capsule 200 mg PO BID Rx Instructions: Per she isn't sure what medications he takes as he had no insurance for months and didn't tell her. Pt isn't able to answer himself. 11/01/23 (DME) FreeStyle Miki 2 [place] Misc See Rx Instructions .ROUTE .MEDSUPPLY Qty: 1 0RF Rx Instructions: Use with miki delacruz amlodipine 10 mg tablet 10 mg PO UD Rx Instructions: Per she isn't sure what medications he takes as he had no insurance for months and didn't tell her. Pt isn't able to answer himself. 11/01/23 Held insulin lispro [Humalog KwikPen Insulin] 100 unit/mL insulin pen 20 unit subcut DAILY Qty: 30 2RF Hold Instructions: Resume on 11/15/23. Hold at home diabetes regimen until you meet with your PCP/zinc plate grainer. Rx Instructions: Per she isn't sure what medications he takes as he had no insurance for months and didn't tell her. Pt isn't able to answer himself. 11/01/23 dulaglutide 3 mg/0.5 mL pen injector 3 mg SQ Q7D Qty: 2 3RF Hold Instructions: Resume on 11/15/23. Hold at home diabetes regimen until you meet with your PCP/zinc plate grainer. Patient Comments: TAKES ON SUNDAYS Rx Instructions: Per she isn't sure what medications he takes as he had no insurance for months and didn't tell her. Pt isn't able to answer himself. 11/01/23 metformin 1,000 mg tablet 1,000 mg PO BID 90 Days Qty: 180 3RF Hold Instructions: Resume on 11/15/23. Hold at home diabetes regimen until you meet with your PCP/zinc plate grainer. insulin lispro [Humalog U-100 Insulin] 100 unit/mL solution See Rx Instructions SQ DAILY Qty: 70 1RF Hold Instructions: Resume on 11/15/23. Hold at home diabetes regimen until you meet with your PCP/zinc plate grainer. Rx Instructions: Per she isn't sure what medications he takes as he had no insurance for months and didn't tell her. Pt isn't able to answer himself. 11/01/23 70 units daily in V-GO subcut daily; Discharge Orders: Discharge Order (Routine); Ordered 11/03/23 Ordered By: Ericka Cruz/Other Patient Handouts: Managing Type 2 Diabetes, Understanding Norovir us Admission Data Admit Date/Time: 11/01/23 05:33 Attending Provider: Zackary Busby Admit Provider: Ania Rincon Primary Care Provider: Jesus Vickers Other Providers: Ania Rincon Other Interventions: Discharge Summary Assessment (RN) Last Done: 11/03/23 13:51 Coding Level of Care Code 60024 INP/OBS DISCH >30 MIN Diagnoses Sepsis without acute organ dysfunction, due to unspecified organism A41.9 Sepsis acute organ dysfunction status: without acute organ dysfunction Sepsis type: sepsis due to unspecified organism Acute hyperglycemia R73.9 Essential hypertension I10 Hypertension type: essential hypertension Electrolyte abnormality E87.8 Coronary artery disease involving [place] coronary artery of [place] heart without angina pectoris I25.10 Coronary Disease-Associated Artery/Lesion type: [place] artery [place] vs. transplanted heart: [place] heart Associated angina: without angina
[2023-11-05 17:57] LABS: Babesia microti DNA Not Detected (Not Detected)
== END 2023-11-03 14:21 | disposition home or self-care (01) | DRG 871 ==
LOC: ED 00:41 → SUATTDRO 05:33 → EDINP 05:33 → 2S 06:29
DX: Z79.84 Long term (current) use of oral hypoglycemic drugs; E11.65 Type 2 diabetes mellitus with hyperglycemia; Z79.899 Other long term (current) drug therapy; E83.42 Hypomagnesemia; Z88.0 Allergy status to penicillin; Z79.1 Long term (current) use of non-steroidal anti-inflammatories (NSAID); I25.10 Atherosclerotic heart disease of native coronary artery without angina pectoris; T38.3X6A Underdosing of insulin and oral hypoglycemic [antidiabetic] drugs, initial encounter; Z79.85 Long-term (current) use of injectable non-insulin antidiabetic drugs; G93.41 Metabolic encephalopathy; Z95.5 Presence of coronary angioplasty implant and graft; Z79.02 Long term (current) use of antithrombotics/antiplatelets; Z91.120 Patient's intentional underdosing of medication regimen due to financial hardship; Z22.1 Carrier of other intestinal infectious diseases; Z79.4 Long term (current) use of insulin; A08.11 Acute gastroenteropathy due to Norwalk agent; I10 Essential (primary) hypertension; E83.39 Other disorders of phosphorus metabolism; A41.89 Other specified sepsis; Z79.82 Long term (current) use of aspirin